=== PATIENT | female | born 1965 | race Caucasian/White ===

== ENCOUNTER 2019-05-25 06:37 | Day surgery (SDC) | payer OTHER ==
[2019-05-25] MEDS ORDERED: fentaNYL CITRATE/PF 100 MCG/2 ML AMP ONE (07:19)
[2019-05-25] MEDS ORDERED: MIDAZOLAM HCL 5 MG/5 ML VIAL ONE ×2 (07:19)
[2019-05-25] MEDS ORDERED: SIMETHICONE 40 MG/0.6 ML ML ONE (07:20)
[2019-05-25 07:30] VITALS: BP_SYST 112
== END 2019-05-25 09:30 | disposition home or self-care (01) ==
LOC: SDS 06:37
PROVIDERS: ATTEND Surgery
DX: K63.89 Other specified diseases of intestine (principal); K57.30 Diverticulosis of large intestine without perforation or abscess without bleeding; K64.8 Other hemorrhoids; K64.4 Residual hemorrhoidal skin tags
CPT/HCPCS: 45378; J2250; J3010